=== PATIENT | female | born 1945 | race Caucasian/White ===

== ENCOUNTER 2020-06-12 18:21 | Emergency (ER) | payer MEDICARE ==
[~2020-06-12] VITALS: Ht 154.9 cm; Wt 82.0 kg
[~2020-06-12 18:21] MED LIST: EPINEPHrine SYRINGE 1 MG/10 ML SYRINGE ONE
[2020-06-12] MEDS ORDERED: DEXTROSE 50% 25 GM / 50ML DISP.SYRIN. IV ONE ×4 (18:42→19:30)
[2020-06-12] MEDS ORDERED: GLUCAGON,HUMAN RECOMBINANT 1 MG/ML VIAL. ONE (18:43)
[2020-06-12] MEDS ORDERED: IV NORMAL SALINE 1000ML BAG 1,000 ML IV ONE (19:00)
[2020-06-12] MEDS ORDERED: GLUCAGON,HUMAN RECOMBINANT 1 MG/ML VIAL. IV ONE (19:00)
[2020-06-12] MEDS ORDERED: VANCOMYCIN PER PHARMACY MC ONE (19:00)
--- NOTE | 2020-06-12 19:11 | PHYS DOC ---
Adult General Chief Complaint Chief Complaint: ALTERED MENTAL STATUS HPI HPI Patient is a 75 year old male with complicated past medical history presenting to emergency department from [facility] due to concern for altered mental status. According to EMS; patient was noted to have decreased activity and responsiveness. care home said that this occurred approximately 30 minutes prior to arrival. Per EMS the patient's blood sugar was down to 56 and she was completely unresponsive and hypoxic. No known recent illness or sick contacts. Patient is unable to provide her history because she is unresponsive at the time of arrival Review of Systems Review of Systems Constitutional: Denies fever or chills [] Eyes: Denies change in visual acuity, redness, or eye pain [] HENT: Denies nasal congestion or sore throat [] Respiratory: Denies cough or shortness of breath [] Cardiovascular: No additional information not addressed in HPI [] GI: Denies abdominal pain, nausea, vomiting, bloody stools or diarrhea [] : Denies dysuria or hematuria [] Musculoskeletal: Denies back pain or joint pain [] Integument: Denies rash or skin lesions [] Neurologic: Denies headache, focal weakness or sensory changes [] Endocrine: Denies polyuria or polydipsia [] All other systems were reviewed and found to be within normal limits, except as documented in this note. Current Medications Current Medications Current Medications Medications (Trade) Dose Ordered Sig/Lucie Start Time Stop Time Status Last Admin Dose Admin Dextrose (Dextrose 50%-Water Syringe) 25 gm STK-MED ONCE 06/13/20 05:15 06/13/20 05:16 DC Furosemide (Lasix) 40 mg 1X ONCE 06/13/20 05:15 06/13/20 05:16 DC 06/13/20 05:17 40 MG Glucagon (Glucagen) 1 mg 1X ONCE 06/12/20 19:00 06/12/20 19:01 DC 06/12/20 18:46 1 MG Info (CONTRAST GIVEN -- Rx MONITORING) 1 each PRN DAILY PRN 06/12/20 21:30 06/14/20 21:29 Iohexol (Omnipaque 350 Mg/ml) 100 ml 1X ONCE 06/12/20 21:30 06/12/20 21:31 DC 06/12/20 21:52 100 ML Non-Formulary Medication (Non Formulary Item) 1 ea ONCE ONCE 06/13/20 02:30 06/13/20 02:31 DC Norepinephrine Bitartrate 8 mg/ Dextrose 258 ml @ 0 mls/hr CONT PRN 06/12/20 19:00 06/13/20 01:42 15 MLS/HR Piperacillin Sod/ Tazobactam Sod 4.5 gm/Sodium Chloride 100 ml @ 200 mls/hr 1X ONCE 06/12/20 19:30 06/12/20 19:59 DC 06/13/20 00:00 200 MLS/HR Propofol 100 ml @ As Directed STK-MED ONCE 06/13/20 04:16 06/13/20 04:16 DC Sodium Chloride 1,000 ml @ 1,000 mls/hr 1X ONCE 06/12/20 19:00 06/12/20 19:59 DC 06/12/20 18:40 1,000 MLS/HR Vancomycin HCl (Vanco Per Pharmacy) 1 each 1X ONCE 06/12/20 19:00 06/12/20 19:06 DC Vancomycin HCl 2 gm/Sodium Chloride 500 ml @ 250 mls/hr 1X ONCE 06/12/20 20:00 06/12/20 21:59 DC 06/12/20 20:59 250 MLS/HR Allergies Allergies Allergies Coded Allergies Type Severity Reaction Last Updated Verified Unable to Assess 06/12/20 No Physical Exam Physical Exam Constitutional: Well developed, well nourished, unresponsive, non-toxic appearance. [] HENT: Normocephalic, atraumatic, bilateral external ears normal, oropharynx moist, no oral exudates, nose normal. [] Eyes: PERRLA, EOMI, conjunctiva normal, no discharge. [] Neck: Normal range of motion, no tenderness, supple, no stridor. [] Cardiovascular:Heart rate regular rhythm, no murmur [] Lungs & Thorax: Bilateral breath sounds clear to auscultation [] Abdomen: Bowel sounds normal, soft, no tenderness, no masses, no pulsatile masses. [] Skin: Warm, dry, no erythema, no rash. [] Back: No tenderness, no CVA tenderness. [] Extremities: No tenderness, no cyanosis, no clubbing, ROM intact, no edema. [] Neurologic: Unable to assess Psychologic: Unable to assess [] Current Patient Data Vital Signs Vital Signs Date Time Temp Pulse Resp B/P (MAP) Pulse Ox O2 Delivery O2 Flow Rate FiO2 06/13/20 04:20 Ventilator 06/13/20 03:07 97.3 113 30 110/60 97.3 06/13/20 01:09 94 06/12/20 18:25 15.0 Lab Values Laboratory Tests Test 06/12/20 18:28 06/12/20 18:55 06/12/20 20:11 06/12/20 20:28 Glucose (Fingerstick) 25 mg/dL (70-99) *L 296 mg/dL (70-99) H White Blood Count 18.8 x10^3/uL (4.0-11.0) H Red Blood Count 5.25 x10^6/uL (3.50-5.40) Hemoglobin 14.4 g/dL (12.0-15.5) Hematocrit 45.5 % (36.0-47.0) Mean Corpuscular Volume 87 fL (79-100) Mean Corpuscular Hemoglobin 28 pg (25-35) Mean Corpuscular Hemoglobin Concent 32 g/dL (31-37) Red Cell Distribution Width 17.0 % (11.5-14.5) H Platelet Count 20 x10^3/uL (140-400) *L Neutrophils (%) (Auto) 85 % (31-73) H Lymphocytes (%) (Auto) 8 % (24-48) L Monocytes (%) (Auto) 6 % (0-9) Eosinophils (%) (Auto) 0 % (0-3) Basophils (%) (Auto) 0 % (0-3) Neutrophils # (Auto) 16.1 x10^3/uL (1.8-7.7) H Lymphocytes # (Auto) 1.5 x10^3/uL (1.0-4.8) Monocytes # (Auto) 1.1 x10^3/uL (0.0-1.1) Eosinophils # (Auto) 0.1 x10^3/uL (0.0-0.7) Basophils # (Auto) 0.1 x10^3/uL (0.0-0.2) Segmented Neutrophils % 84 % (35-66) H Band Neutrophils % 2 % (0-9) Lymphocytes % 5 % (24-48) L Monocytes % 7 % (0-10) Metamyelocytes % 1 % (0-0) H Myelocytes % 1 % (0-0) H Toxic Granulation Mod Toxic Vacuolation Mod Platelet Estimate Decreased (ADEQUATE) Polychromasia Slight Poikilocytosis Slight Anisocytosis Slight Spherocytes Occ Target Cells Occ Crenated Cell Present Prothrombin Time 63.1 SEC (11.7-14.0) H Prothrombin Time INR 7.1 (0.8-1.1) *H Activated Partial Thromboplast Time 70 SEC (24-38) H Fibrinogen 266 mg/dL (200-440) D-Dimer (Teresa) 3.47 ug/mlFEU (0.00-0.50) H Sodium Level 136 mmol/L (136-145) Potassium Level 4.9 mmol/L (3.5-5.1) Chloride Level 101 mmol/L (98-107) Carbon Dioxide Level 9 mmol/L (21-32) *L Anion Gap 26 (6-14) H Blood Urea Nitrogen 58 mg/dL (7-20) H Creatinine 2.5 mg/dL (0.6-1.0) H Estimated GFR (Cockcroft-Gault) 18.7 BUN/Creatinine Ratio 23 (6-20) H Glucose Level 176 mg/dL (70-99) H Lactic Acid Level 15.2 mmol/L (0.4-2.0) *H Calcium Level 8.7 mg/dL (8.5-10.1) Total Bilirubin 2.2 mg/dL (0.2-1.0) H Aspartate Amino Transferase (AST) 526 U/L (15-37) H Alanine Aminotransferase (ALT) 158 U/L (14-59) H Alkaline Phosphatase 171 U/L (46-116) H Creatine Kinase 92 U/L (26-192) Troponin I Quantitative 0.036 ng/mL (0.000-0.055) Total Protein 5.1 g/dL (6.4-8.2) L Albumin 1.5 g/dL (3.4-5.0) L Albumin/Globulin Ratio 0.4 (1.0-1.7) L Lipase 144 U/L (73-393) Procalcitonin 0.29 ng/mL (0.00-0.10) H Urine Collection Type U cath Urine Color Randa Urine Clarity Cloudy Urine pH 5.5 (<5.0-8.0) Urine Specific [place] 1.020 (1.000-1.030) Urine Protein >=300 mg/dL (NEG-TRACE) Urine Glucose (UA) 100 mg/dL (NEG) Urine Ketones (Stick) Negative mg/dL (NEG) Urine Blood Large (NEG) Urine Nitrite Negative (NEG) Urine Bilirubin Moderate (NEG) Urine Urobilinogen Dipstick 1.0 mg/dL (0.2 mg/dL) Urine Leukocyte Esterase Small (NEG) Urine RBC 11-20 /HPF (0-2) Urine WBC 5-10 /HPF (0-4) Urine Squamous Epithelial Cells Few /LPF Urine Amorphous Sediment Present /HPF Urine Bacteria Mod /HPF (0-FEW) Urine Hyaline Casts Moderate /HPF Urine Mucus Mod /LPF Test 06/12/20 23:28 06/12/20 23:34 06/13/20 00:39 06/13/20 02:01 Influenza Type A Antigen Negative (NEGATIVE) Influenza Type B Antigen Negative (NEGATIVE) Lactic Acid Level 7.3 mmol/L (0.4-2.0) *H Glucose (Fingerstick) 94 mg/dL (70-99) 77 mg/dL (70-99) Test 06/13/20 03:15 06/13/20 03:33 06/13/20 03:53 Glucose (Fingerstick) 64 mg/dL (70-99) L White Blood Count 23.8 x10^3/uL (4.0-11.0) H Red Blood Count 5.13 x10^6/uL (3.50-5.40) Hemoglobin 14.3 g/dL (12.0-15.5) Hematocrit 45.4 % (36.0-47.0) Mean Corpuscular Volume 89 fL (79-100) Mean Corpuscular Hemoglobin 28 pg (25-35) Mean Corpuscular Hemoglobin Concent 32 g/dL (31-37) Red Cell Distribution Width 17.5 % (11.5-14.5) H Platelet Count 127 x10^3/uL (140-400) #L Neutrophils (%) (Auto) 87 % (31-73) H Lymphocytes (%) (Auto) 8 % (24-48) L Monocytes (%) (Auto) 4 % (0-9) Eosinophils (%) (Auto) 1 % (0-3) Basophils (%) (Auto) 1 % (0-3) Neutrophils # (Auto) 20.7 x10^3/uL (1.8-7.7) H Lymphocytes # (Auto) 2.0 x10^3/uL (1.0-4.8) Monocytes # (Auto) 0.8 x10^3/uL (0.0-1.1) Eosinophils # (Auto) 0.1 x10^3/uL (0.0-0.7) Basophils # (Auto) 0.1 x10^3/uL (0.0-0.2) O2 Saturation 99 % (92-99) Arterial Blood pH 7.20 (7.35-7.45) *L Arterial Blood pCO2 at Patient Temp 14 mmHg (35-46) *L Arterial Blood pO2 at Patient Temp 208 mmHg (65-108) H Arterial Blood HCO3 5 mmol/L (21-28) L Arterial Blood Base Excess -20 mmol/L (-3-3) L FiO2 100 Laboratory Tests 06/12/20 20:11 06/13/20 03:33 Laboratory Tests 06/12/20 20:11 EKG EKG [] Radiology/Procedures Radiology/Procedures [] Course & Med Decision Making Course & Med Decision Making Pertinent Labs and Imaging studies reviewed. (See chart for details) 75F presented emergency department acutely unresponsive, hypotensive and hypoglycemic. Patient was immediately given 2 large-bore IVs that she arrived without any peripheral access. Initial glucose was noted to be 25. Patient was immediately given an amp of D50 and mild improvement of her mental status. Patient was still noted to be mildly hypotensive and IV fluids were started. Full labs obtained and will determine any further underlying evidence of sepsis. Also planning to obtain a CT head to make sure there is no intracranial abnormality. Documentation delayed secondary to patient care. Patient with multiple lab abnormalities. Primarily noted that the patient has blood in her urine which is raise concern for urinary tract infection however given the patient's compilation of symptoms concern for significant urosepsis. Patient did have a lactic of 15, INR of 7.1, platelets of 20. Patient did arouse slightly after she was given glucose and was complaining of pain in her back rating into her foot. This raised concern for acute aortic dissection or active disease. 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 They also state that she has been undergoing and playing on further chemotherapy for this melanoma thought that she was to have a good prognosis. An extensive discussion with them concerning current evidence of liver, cardiac and renal failure and at this time they feel that the patient would want to proceed with aggressive treatment. At this time we are still having significant of difficulty obtaining remarkable peripheral IV access and therefore considering reversal of anticoagulation and central line placement. 0259 -at this time patient remains hemodynamically stable we are able to get a blood pressure of 116/65. Of note because of the patient's tenuous intravascul ar status after discussing with family decision was made to reverse the patient's anticoagulation with Kcentra and transvaginal platelets. Consent was obtained over the phone from family. K centra being given now, will repeat labs and and determine need for central line. 0422 -patient continued to be held in the emergency department due to reported lack of beds in the ICU. While here nurse noted that the patient's breathing became agonal and she became hypoxic. Decision made to intubate the patient which was done successfully. At this time when discussing with nursing staff about able to transfer the patient to ICU. Dragon Disclaimer Dragon Disclaimer This electronic medical record was generated, in whole or in part, using a voice recognition dictation system. Intubation Procedure Intubation Procedure Intub Indication: Respiratory failure Consent: Unable to give consent due to emergent nature. Medications Used: see nursing note Procedure: The patient was placed in the appropriate position. Intubation was performed using 3 mac glidescope 7.5 endotracheal tube. ETT secured at 22cm at the teeth. Initial confirmation of placement included bilateral breath sounds, tube fogging, adequate chest rise, adequate pulse oximetry reading. A chest x- ray to verify correct placement of the tube showed appropriate tube position. The patient tolerated the procedure well. Complications: none. 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
[2020-06-12] MEDS ORDERED: PIPERACILLIN/TAZOBACTAM 4.5 GM in IV NORMAL SALINE 100ML 100 ML IV ONE (19:30)
[2020-06-12] MEDS ORDERED: VANCOMYCIN 2 GM in IV NORMAL SALINE 500ML BAG 500 ML IV ONE (20:00)
--- NOTE | 2020-06-12 20:03 | RAD ---
Exam performed: One view chest. Indication: Reason: syncope / Spl. Instructions: / History: Date of Service: 06/12/2020 7:14 PM Comparison: None available. Single AP upright portable view chest findings: Poor inspiratory effort Cardiomediastinal silhouette is within limits of normal for degree of inspiration. Linear left basila r opacity may be related to a combination of infiltrate/atelectasis with small effusion. The right felice ng is clear. Right hilar prominence noted. The bony structures are normal. Impression: Right hilar prominence perhaps related to rotation, however right hilar mass is not excluded. Compari son with any previous chest x-rays available may be obtained, however if not evaluation with CT chest with contrast may be obtained on a nonemergent basis. Left basilar infiltrate or atelectasis with pleural effusion. Electronically signed by: Marjorie Tate MD (06/12/2020 8:00 PM) [facility]
[2020-06-12 20:32] LABS: BASO # 0.1 x10^3/uL (0.0-0.2); BASO % 0 % (0-3); EOS # 0.1 x10^3/uL (0.0-0.7); EOS % 0 % (0-3); HEMATOCRIT 45.5 % (36.0-47.0); HEMOGLOBIN 14.4 g/dL (12.0-15.5); LYMPH # 1.5 x10^3/uL (1.0-4.8); LYMPH % 8 % (24-48); MEAN CORPUSCULAR HEMOGLOBIN 28 pg (25-35); MEAN CORPUSCULAR HGB CONC 32 g/dL (31-37); MEAN CORPUSCULAR VOLUME 87 fL (79-100); MONO # 1.1 x10^3/uL (0.0-1.1); MONO % 6 % (0-9); NEUT # 16.1 x10^3/uL (1.8-7.7); NEUT % 85 % (31-73); RED BLOOD COUNT 5.25 x10^6/uL (3.50-5.40); WHITE BLOOD COUNT 18.8 x10^3/uL (4.0-11.0)
[2020-06-12 20:37] LABS: PLATELET COUNT 20 x10^3/uL (140-400)
[2020-06-12 20:43] LABS: PROTHROMBIN TIME PATIENT 63.1 SEC (11.7-14.0)
[2020-06-12 20:45] LABS: BILIRUBIN,URINE MODERATE (NEG); CLARITY,URINE CLOUDY; COLOR,URINE AMBER; NITRITE,URINE NEGATIVE (NEG); PH,URINE 5.5 (<5.0-8.0); PROTEIN,URINE >=300 mg/dL (NEG-TRACE)
[2020-06-12 20:51] LABS: AMORPHOUS SEDIMENT,UR PRESENT /HPF; HYALINE CASTS, URINE MODERATE /HPF
[2020-06-12 20:52] LABS: BACTERIA,URINE MOD /HPF (0-FEW)
[2020-06-12 20:53] LABS: D-DIMER 3.47 ug/mlFEU (0.00-0.50)
[2020-06-12 20:54] LABS: ALBUMIN 1.5 g/dL (3.4-5.0); ALBUMIN/GLOBULIN RATIO 0.4 (1.0-1.7); CALCIUM 8.7 mg/dL (8.5-10.1); CREATININE 2.5 mg/dL (0.6-1.0); GFR 18.7; POTASSIUM 4.9 mmol/L (3.5-5.1); TOTAL BILIRUBIN 2.2 mg/dL (0.2-1.0); TOTAL PROTEIN 5.1 g/dL (6.4-8.2)
[2020-06-12 21:23] LABS: % BANDS 2 % (0-9); % LYMPHS 5 % (24-48); % METAS 1 % (0-0); % MONOS 7 % (0-10); % MYELOS 1 % (0-0); % SEGS 84 % (35-66); PLT ESTIMATE DECREASED (ADEQUATE)
[2020-06-12 21:24] LABS: ANISOCYTOSIS SLIGHT; POIKILOCYTOSIS SLIGHT; POLYCHROMASIA SLIGHT; SPHEROCYTES OCC; TARGET CELLS OCC; TOXIC GRANULATION MOD; TOXIC VACUOLATION MOD
[2020-06-12] MEDS ORDERED: IOHEXOL 350 MG/ML 100 ML VIAL. IV ONE (21:30)
[2020-06-12] MEDS ORDERED: CONTRAST GIVEN. MC PRN (21:30)
--- NOTE | 2020-06-12 22:20 | RAD ---
Exam: CT head INDICATION: Altered mental status TECHNIQUE: Sequential axial images through the head were obtained without the administration of IV co ntrast. Comparisons: None FINDINGS: No focal parenchymal lesion or hemorrhage is identified. There is no midline shift or sulcal effaceme nt. Mild patchy hypodensity in the periventricular white matter. No acute vascular territory infarction i s identified. Crespo-white distinction is preserved. The ventricular system is within normal limits without compression hydrocephalus. The basal cisterns are well maintained. The visualized portions of the paranasal sinuses and mastoid air cells are well-pneumatized. No acute fractures. IMPRESSION: Mild small vessel schema change, technically age indeterminate without recent prior imaging. Exposure: One or more of the following in the visualized dose reduction techniques were utilized for this examination: 1. Automated exposure control 2. Adjustment of the MA and/or KV according to patient size Use of iterative of reconstructive technique Electronically signed by: Josefina Hyatt MD (06/12/2020 10:18 PM) [facility]
--- NOTE | 2020-06-12 22:36 | RAD ---
Exam: CT of chest, abdomen and pelvis with contrast INDICATION: Back pain, unresponsive TECHNIQUE: Sequential axial images through the chest, abdomen and pelvis obtained following the admin istration of 75 mL of Isovue-370 IV contrast. Sagittal and coronal reformatted images were reconstruc joe from the axial data and reviewed. 3-D reformatted images were reconstructed from the axial data a nd reviewed. Comparisons: None FINDINGS: Visualized portions of the thyroid are unremarkable. No enlarged mediastinal lymph nodes. Heart size is normal. There is a large filling defect occupying the entire right atrium which appears to be extending from the IVC. Pulmonary artery is not enlarged. Thoracic aorta has a normal course a nd caliber. High density contrast is seen in the left subclavian artery extending to the descending t horacic aorta. Airways are patent. No consolidation or pneumothorax. No suspicious lung nodules. Moderate-sized bilateral pleural effusions. There is a partially calcified multilobulated large mass within the left hepatic lobe measuring appro ximately 7.7 x 6.8 cm. Diffuse hepatic steatosis. Spleen, pancreas, gallbladder and adrenals are unre markable. No perinephric inflammation or hydronephrosis. No renal or ureteral calculi. Bladder is decompressed not well evaluated. Uterus is not enlarged. No abnormal adnexal mass. Large and small bowel are unremarkable. Appendix is not identified. No free intra-abdominal air or fl uid. No obstruction. Abdominal aorta has a normal course and caliber. No enlarged intra-abdominal lymph nodes. No suspicious osseous lesions or acute fractures. IMPRESSION: 1. Large multiloculated partially calcified mass within the left hepatic lobe measuring approximatel y 7.8 x 6.8 cm. This is incompletely characterized on this exam. 2. 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 3. Given pattern of contrast evolution in the vasculature on two phase study, there are findings of catheterization of a left upper extremity arterial vessel. Recommend discontinued use of injected dmitry e. 4. Diffuse soft tissue anasarca and moderate bilateral pleural effusions. Exposure: One or more of the following in the visualized dose reduction techniques were utilized for this examination: 1. Automated exposure control 2. Adjustment of the MA and/or KV according to patient size 3. Use of iterative of reconstructive technique FOR INTERNAL CODING PURPOSES Critical result: Findings discussed with Tierney at 06/12/2020 10:07 PM. RESULT CODE: (C) Electronically signed by: Josefina Hyatt MD (06/12/2020 10:34 PM) [facility]
[2020-06-12 23:52] LABS: INFLUENZA A PATIENT NEGATIVE (NEGATIVE); INFLUENZA B PATIENT NEGATIVE (NEGATIVE)
[2020-06-13] MEDS: NOREPINEPHRINE VIAL 8 MG in IV DEXTROSE 5% 250 ML IV PRN ×2 (01:42→06:40)
[2020-06-13] MEDS ORDERED: HUM PROTHROMBIN CPLX IV ONE (02:30)
[2020-06-13] MEDS ORDERED: [UNRECOGNIZED DRUG - OTHER] IV ONE (02:30)
[2020-06-13] MEDS ORDERED: NON FORMULARY ITEM IV ONE (02:30)
[2020-06-13 02:40] VITALS: BP 90/51
[2020-06-13 02:47] VITALS: BP 90/51
[2020-06-13 03:02] VITALS: BP 116/65
[2020-06-13 03:07] VITALS: BP 110/60
[2020-06-13] MEDS ORDERED: DEXTROSE 50% 25 GM / 50ML DISP.SYRIN. IV ONE ×2 (03:17→05:15)
[2020-06-13 03:45] LABS: BASO # 0.1 x10^3/uL (0.0-0.2); BASO % 1 % (0-3); EOS # 0.1 x10^3/uL (0.0-0.7); EOS % 1 % (0-3); HEMATOCRIT 45.4 % (36.0-47.0); HEMOGLOBIN 14.3 g/dL (12.0-15.5); LYMPH % 8 % (24-48); MEAN CORPUSCULAR HEMOGLOBIN 28 pg (25-35); MEAN CORPUSCULAR HGB CONC 32 g/dL (31-37); MEAN CORPUSCULAR VOLUME 89 fL (79-100); MONO # 0.8 x10^3/uL (0.0-1.1); MONO % 4 % (0-9); NEUT # 20.7 x10^3/uL (1.8-7.7); NEUT % 87 % (31-73); PLATELET COUNT 127 x10^3/uL (140-400); RED BLOOD COUNT 5.13 x10^6/uL (3.50-5.40); RED CELL DISTRIBUTION WIDTH 17.5 % (11.5-14.5); WHITE BLOOD COUNT 23.8 x10^3/uL (4.0-11.0)
[2020-06-13 03:52] LABS: BASE EXCESS ABG -20 mmol/L (-3-3); HCO3 ABG 5 mmol/L (21-28); PO2 ABG 208 mmHg (65-108); SAT O2 ABG 99 % (92-99)
[2020-06-13] MEDS ORDERED: FUROSEMIDE 40 MG/4 ML VIAL. ONE (03:52)
[2020-06-13] MEDS ORDERED: FUROSEMIDE 40 MG TABLET. PO ONE (04:00)
[2020-06-13] MEDS ORDERED: PROPOFOL 0 ML IV ONE (04:16)
[2020-06-13 04:43] LABS: FIO2 ABG 100; PCO2 ABG 14 mmHg (35-46)
[2020-06-13] MEDS ORDERED: FUROSEMIDE 40 MG/4 ML VIAL. IVP ONE (05:15)
[2020-06-13 05:38] VITALS: BP 92/51
[2020-06-13 05:39] LABS: BASE EXCESS ABG -25 mmol/L (-3-3); HCO3 ABG 5 mmol/L (21-28); PO2 ABG 102 mmHg (65-108); SAT O2 ABG 94 % (92-99)
[2020-06-13 05:47] LABS: FIO2 ABG 100; PCO2 ABG 20 mmHg (35-46)
--- NOTE | 2020-06-13 05:47 | RAD ---
XR CHEST 1V supine Clinical Indication: Reason: s/p tlc, ett / Comparison: AP chest, prior day. Findings: Endotracheal tube tip is 3.5 cm superior to the eduardo. Enteric tube tip is in the stomach, tip outsi de of [id number]. There is right IJ central line, tip near superior atriocaval junction. The cardi omediastinal silhouette is probably stable. Mild right basilar atelectasis. There is new hazy opacity in the left midlung. Alternatively this opacity could be due to layering pleural effusion. Left basi lar airspace disease is unchanged. There is no obvious pneumothorax. IMPRESSION: 1. Appropriate position of life support devices. 2. New left midlung airspace disease. 3. Bibasilar atelectasis. Electronically signed by: Morgan Turner MD (06/13/2020 5:44 AM) [facility]
[2020-06-13] MEDS ORDERED: SODIUM BICARBONATE VIAL 150 MEQ in IV STERILE WATER 1,000 ML IV SCH (06:00)
[2020-06-13 06:03] LABS: ALBUMIN/GLOBULIN RATIO 0.4 (1.0-1.7); CALCIUM 7.8 mg/dL (8.5-10.1); CREATININE 2.7 mg/dL (0.6-1.0); GFR 17.1; TOTAL BILIRUBIN 2.1 mg/dL (0.2-1.0); TOTAL PROTEIN 3.6 g/dL (6.4-8.2)
[2020-06-13 06:10] LABS: POTASSIUM 6.2 mmol/L (3.5-5.1)
[2020-06-13] MEDS ORDERED: PROPOFOL 10 MG/ML (20ML) VIAL. IV ONE ×2 (06:15→06:45)
[2020-06-13] MEDS ORDERED: CALCIUM GLUCONATE 1,000 MG/10 ML VIAL. IVP ONE (06:30)
[2020-06-13] MEDS ORDERED: ETOMIDATE 20 MG/10 ML VIAL. IV ONE (07:06)
[2020-06-13] MEDS ORDERED: SUCCINYLCHOLINE 200 MG/10 ML VIAL. ONE (07:06)
[2020-06-13] MEDS ORDERED: EPINEPHrine SYRINGE 1 MG/10 ML SYRINGE IV ONE (07:24)
--- NOTE | 2020-06-13 07:35 | PDOC5 ---
CODE REPORT CODE REPORT Patient is a 75-year-old female who was admitted to the ICU, boarding in the ER waiting for bed availability, was CODED, in asystole. After several rounds of resuscitation, NO ROSC. Patient was pronounced by just physician at 7:[address] River Finnegan, the attending physician was notified of patient passing. DANIELLE DUNCAN DO Jun 13, 2020 07:35
--- NOTE | 2020-06-13 07:47 | PDOC1 ---
History and Physical Date of Admission Date of Admission DATE: 06/13/20 TIME: 06:22 Identification/Chief Complaint Chief Complaint Altered mental status Source Source: Chart review History of Present Illness History of Present Illness Patient is 75-year-old female with past medical history melanoma on chemotherapy, who [facility] for evaluation of altered mental status. Per EMS, patient was noted to be unresponsive and hypoxic with a blood glucose of 58. Upon arrival in the ED she was hypotensive with blood glucose was 25 and she was treated with IV fluids and D50 with mild improvement in mental status. 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 Initial labs and vitals concerning for urosepsis, acute renal failure, liver failure, and heart failure. Given significantly elevated INR at 7.1 and platelets at 20, she was given Kcentra and platelet transfusion. Patient continued to deteriorate and was eventually intubated in the ED. Family reportedly wanted to proceed with aggressive treatment. Will admit patient to the ICU for further medical management. Past Medical History Past Medical History Unable to be obtained due to clinical condition Past Surgical History Past Surgical History Unable to be obtained due to clinical condition Family History Family History Unable to be obtained due to clinical condition SOCIAL HISTORY: Unable to be obtained due to clinical condition Family History: Other Current Medications Current Medications Current Medications Dextrose (Dextrose 50%-Water Syringe) 25 gm STK-MED ONCE IV ; Start 06/12/20 at 18:42; Stop 06/12/20 at 18:43; Status DC Glucagon (Glucagen) 1 mg STK-MED ONCE .ROUTE ; Start 06/12/20 at 18:43; Stop 06/12/20 at 18:44; Status DC Dextrose (Dextrose 50%-Water Syringe) 25 gm 1X ONCE IV Last administered on 06/12/20at 18:35; Start 06/12/20 at 19:00; Stop 06/12/20 at 19:01; Status DC Dextrose (Dextrose 50%-Water Syringe) 25 gm 1X ONCE IV Last administered on 06/12/20at 18:44; Start 06/12/20 at 19:00; Stop 06/12/20 at 19:01; Status DC Glucagon (Glucagen) 1 mg 1X ONCE IV Last administered on 06/12/20at 18:46; Start 06/12/20 at 19:00; Stop 06/12/20 at 19:01; Status DC Sodium Chloride 1,000 ml @ 1,000 mls/hr 1X ONCE IV Last administered on 06/12/20at 18:40; Start 06/12/20 at 19:00; Stop 06/12/20 at 19:59; Status DC Piperacillin Sod/ Tazobactam Sod 4.5 gm/Sodium Chloride 100 ml @ 200 mls/hr 1X ONCE IV Last administered on 06/13/20at 00:00; Start 06/12/20 at 19:30; Stop 06/12/20 at 19:59; Status DC Vancomycin HCl (Vanco Per Pharmacy) 1 each 1X ONCE MC ; Start 06/12/20 at 19:0 0; Stop 06/12/20 at 19:06; Status DC Norepinephrine Bitartrate 8 mg/ Dextrose 258 ml @ 0 mls/hr CONT PRN IV PER PROTOCOL Last administered on 06/13/20at 01:42; Start 06/12/20 at 19:00 Dextrose (Dextrose 50%-Water Syringe) 50 gm 1X ONCE IV Last administered on 06/13/20at 03:18; Start 06/12/20 at 19:30; Stop 06/12/20 at 19:31; Status DC Vancomycin HCl 2 gm/Sodium Chloride 500 ml @ 250 mls/hr 1X ONCE IV Last administered on 06/12/20at 20:59; Start 06/12/20 at 20:00; Stop 06/12/20 at 21:59; Status DC Iohexol (Omnipaque 350 Mg/ml) 100 ml 1X ONCE IV Last administered on 06/12/20at 21:52; Start 06/12/20 at 21:30; Stop 06/12/20 at 21:31; Status DC Info (CONTRAST GIVEN -- Rx MONITORING) 1 each PRN DAILY PRN MC SEE COMMENTS; Start 06/12/20 at 21:30; Stop 06/14/20 at 21:29 Non-Formulary Medication (Non Formulary Item) 1 ea ONCE ONCE IV Last administered on 06/13/20at 02:30; Start 06/13/20 at 02:30; Stop 06/13/20 at 02:31; Status DC Dextrose (Dextrose 50%-Water Syringe) 25 gm STK-MED ONCE IV ; Start 06/13/20 at 03:17; Stop 06/13/20 at 03:17; Status DC Furosemide (Lasix) 40 mg 1X ONCE PO ; Start 06/13/20 at 04:00; Stop 06/13/20 at 04:01; Status Cancel Furosemide (Lasix) 40 mg STK-MED ONCE .ROUTE ; Start 06/13/20 at 03:52; Stop 06/13/20 at 03:52; Status DC Propofol 100 ml @ As Directed STK-MED ONCE IV ; Start 06/13/20 at 04:16; Stop 06/13/20 at 04:16; Status DC Furosemide (Lasix) 40 mg 1X ONCE IVP Last administered on 06/13/20at 05:17; Start 06/13/20 at 05:15; Stop 06/13/20 at 05:16; Status DC Dextrose (Dextrose 50%-Water Syringe) 25 gm STK-MED ONCE IV ; Start 06/13/20 at 05:15; Stop 06/13/20 at 05:16; Status DC Sodium Bicarbonate 150 meq/Sterile Water 1,150 ml @ 125 mls/hr Q9H12M IV Last administered on 06/13/20at 06:01; Start 06/13/20 at 06:00 Propofol (Diprivan) 200 mg 1X ONCE IV ; Start 06/13/20 at 06:15; Stop 06/13/20 at 06:16; Status DC Allergies Allergies: Coded Allergies: Unable to Assess (Unverified , 06/12/20) UNRESPONSIVE IN ED ROS Review of System Unable to be obtained due to clinical condition Physical Exam Physical Exam General: Obtunded HEENT: PERRLA, spontaneous eye movement Lungs: Decreased breath sounds Heart: RRR, no murmurs Cardiovascular: S1, S2 Abdomen: Obese abdomen, soft Extremities: Generalized edema no clubbing, No cyanosis Skin: Multiple abrasions, no rashes, No significant lesion Neuro: Obtunded Psych/Mental Status: Obtunded Vitals Vitals Vital Signs Date Time Temp Pulse Resp B/P (MAP) Pulse Ox O2 Delivery O2 Flow Rate FiO2 06/13/20 06:05 Ventilator 06/13/20 03:07 97.3 113 30 110/60 97.3 06/13/20 01:09 94 06/12/20 18:25 15.0 Labs Labs Laboratory Tests Test 06/12/20 18:28 06/12/20 18:55 06/12/20 20:11 06/12/20 20:28 Glucose (Fingerstick) 25 mg/dL (70-99) 296 mg/dL (70-99) White Blood Count 18.8 x10^3/uL (4.0-11.0) Red Blood Count 5.25 x10^6/uL (3.50-5.40) Hemoglobin 14.4 g/dL (12.0-15.5) Hematocrit 45.5 % (36.0-47.0) Mean Corpuscular Volume 87 fL (79-100) Mean Corpuscular Hemoglobin 28 pg (25-35) Mean Corpuscular Hemoglobin Concent 32 g/dL (31-37) Red Cell Distribution Width 17.0 % (11.5-14.5) Platelet Count 20 x10^3/uL (140-400) Neutrophils (%) (Auto) 85 % (31-73) Lymphocytes (%) (Auto) 8 % (24-48) Monocytes (%) (Auto) 6 % (0-9) Eosinophils (%) (Auto) 0 % (0-3) Basophils (%) (Auto) 0 % (0-3) Neutrophils # (Auto) 16.1 x10^3/uL (1.8-7.7) Lymphocytes # (Auto) 1.5 x10^3/uL (1.0-4.8) Monocytes # (Auto) 1.1 x10^3/uL (0.0-1.1) Eosinophils # (Auto) 0.1 x10^3/uL (0.0-0.7) Basophils # (Auto) 0.1 x10^3/uL (0.0-0.2) Segmented Neutrophils % 84 % (35-66) Band Neutrophils % 2 % (0-9) Lymphocytes % 5 % (24-48) Monocytes % 7 % (0-10) Metamyelocytes % 1 % (0-0) Myelocytes % 1 % (0-0) Toxic Granulation Mod Toxic Vacuolation Mod Platelet Estimate Decreased (ADEQUATE) Polychromasia Slight Poikilocytosis Slight Anisocytosis Slight Spherocytes Occ Target Cells Occ Crenated Cell Present Prothrombin Time 63.1 SEC (11.7-14.0) Prothromb Time International Ratio 7.1 (0.8-1.1) Activated Partial Thromboplast Time 70 SEC (24-38) Fibrinogen 266 mg/dL (200-440) D-Dimer (Teresa) 3.47 ug/mlFEU (0.00-0.50) Sodium Level 136 mmol/L (136-145) Potassium Level 4.9 mmol/L (3.5-5.1) Chloride Level 101 mmol/L (98-107) Carbon Dioxide Level 9 mmol/L (21-32) Anion Gap 26 (6-14) Blood Urea Nitrogen 58 mg/dL (7-20) Creatinine 2.5 mg/dL (0.6-1.0) Estimated GFR (Cockcroft-Gault) 18.7 BUN/Creatinine Ratio 23 (6-20) Glucose Level 176 mg/dL (70-99) Lactic Acid Level 15.2 mmol/L (0.4-2.0) Calcium Level 8.7 mg/dL (8.5-10.1) Total Bilirubin 2.2 mg/dL (0.2-1.0) Aspartate Amino Transf (AST/SGOT) 526 U/L (15-37) Alanine Aminotransferase (ALT/SGPT) 158 U/L (14-59) Alkaline Phosphatase 171 U/L (46-116) Creatine Kinase 92 U/L (26-192) Troponin I Quantitative 0.036 ng/mL (0.000-0.055) Total Protein 5.1 g/dL (6.4-8.2) Albumin 1.5 g/dL (3.4-5.0) Albumin/Globulin Ratio 0.4 (1.0-1.7) Lipase 144 U/L (73-393) Procalcitonin 0.29 ng/mL (0.00-0.10) Urine Collection Type U cath Urine Color Randa Urine Clarity Cloudy Urine pH 5.5 (<5.0-8.0) Urine Specific Waller 1.020 (1.000-1.030) Urine Protein >=300 mg/dL (NEG-TRACE) Urine Glucose (UA) 100 mg/dL (NEG) Urine Ketones (Stick) Negative mg/dL (NEG) Urine Blood Large (NEG) Urine Nitrite Negative (NEG) Urine Bilirubin Moderate (NEG) Urine Urobilinogen Dipstick 1.0 mg/dL (0.2 mg/dL) Urine Leukocyte Esterase Small (NEG) Urine RBC 11-20 /HPF (0-2) Urine WBC 5-10 /HPF (0-4) Urine Squamous Epithelial Cells Few /LPF Urine Amorphous Sediment Present /HPF Urine Bacteria Mod /HPF (0-FEW) Urine Hyaline Casts Moderate /HPF Urine Mucus Mod /LPF Test 06/12/20 23:28 06/12/20 23:34 06/13/20 00:39 06/13/20 02:01 Influenza Type A Antigen Negative (NEGATIVE) Influenza Type B Antigen Negative (NEGATIVE) Lactic Acid Level 7.3 mmol/L (0.4-2.0) Glucose (Fingerstick) 94 mg/dL (70-99) 77 mg/dL (70-99) Test 06/13/20 03:15 06/13/20 03:33 06/13/20 03:53 06/13/20 05:07 Glucose (Fingerstick) 64 mg/dL (70-99) 59 mg/dL (70-99) White Blood Count 23.8 x10^3/uL (4.0-11.0) Red Blood Count 5.13 x10^6/uL (3.50-5.40) Hemoglobin 14.3 g/dL (12.0-15.5) Hematocrit 45.4 % (36.0-47.0) Mean Corpuscular Volume 89 fL (79-100) Mean Corpuscular Hemoglobin 28 pg (25-35) Mean Corpuscular Hemoglobin Concent 32 g/dL (31-37) Red Cell Distribution Width 17.5 % (11.5-14.5) Platelet Count 127 x10^3/uL (140-400) Neutrophils (%) (Auto) 87 % (31-73) Lymphocytes (%) (Auto) 8 % (24-48) Monocytes (%) (Auto) 4 % (0-9) Eosinophils (%) (Auto) 1 % (0-3) Basophils (%) (Auto) 1 % (0-3) Neutrophils # (Auto) 20.7 x10^3/uL (1.8-7.7) Lymphocytes # (Auto) 2.0 x10^3/uL (1.0-4.8) Monocytes # (Auto) 0.8 x10^3/uL (0.0-1.1) Eosinophils # (Auto) 0.1 x10^3/uL (0.0-0.7) Basophils # (Auto) 0.1 x10^3/uL (0.0-0.2) O2 Saturation 99 % (92-99) Arterial Blood pH 7.20 (7.35-7.45) Arterial Blood pCO2 at Patient Temp 14 mmHg (35-46) Arterial Blood pO2 at Patient Temp 208 mmHg (65-108) Arterial Blood HCO3 5 mmol/L (21-28) Arterial Blood Base Excess -20 mmol/L (-3-3) FiO2 100 Test 06/13/20 05:28 06/13/20 05:40 Sodium Level 134 mmol/L (136-145) Potassium Level 6.2 mmol/L (3.5-5.1) Chloride Level 100 mmol/L (98-107) Carbon Dioxide Level 8 mmol/L (21-32) Anion Gap 26 (6-14) Blood Urea Nitrogen 59 mg/dL (7-20) Creatinine 2.7 mg/dL (0.6-1.0) Estimated GFR (Cockcroft-Gault) 17.1 BUN/Creatinine Ratio 22 (6-20) Glucose Level 377 mg/dL (70-99) Calcium Level 7.8 mg/dL (8.5-10.1) Total Bilirubin 2.1 mg/dL (0.2-1.0) Aspartate Amino Transf (AST/SGOT) 1231 U/L (15-37) Alanine Aminotransferase (ALT/SGPT) 252 U/L (14-59) Alkaline Phosphatase 126 U/L (46-116) Total Protein 3.6 g/dL (6.4-8.2) Albumin 1.0 g/dL (3.4-5.0) Albumin/Globulin Ratio 0.4 (1.0-1.7) O2 Saturation 94 % (92-99) Arterial Blood pH 7.01 (7.35-7.45) Arterial Blood pCO2 at Patient Temp 20 mmHg (35-46) Arterial Blood pO2 at Patient Temp 102 mmHg (65-108) Arterial Blood HCO3 5 mmol/L (21-28) Arterial Blood Base Excess -25 mmol/L (-3-3) FiO2 100 Laboratory Tests Test 06/12/20 18:28 06/12/20 18:55 06/12/20 20:11 06/12/20 20:28 Glucose (Fingerstick) 25 mg/dL (70-99) 296 mg/dL (70-99) White Blood Count 18.8 x10^3/uL (4.0-11.0) Red Blood Count 5.25 x10^6/uL (3.50-5.40) Hemoglobin 14.4 g/dL (12.0-15.5) Hematocrit 45.5 % (36.0-47.0) Mean Corpuscular Volume 87 fL (79-100) Mean Corpuscular Hemoglobin 28 pg (25-35) Mean Corpuscular Hemoglobin Concent 32 g/dL (31-37) Red Cell Distribution Width 17.0 % (11.5-14.5) Platelet Count 20 x10^3/uL (140-400) Neutrophils (%) (Auto) 85 % (31-73) Lymphocytes (%) (Auto) 8 % (24-48) Monocytes (%) (Auto) 6 % (0-9) Eosinophils (%) (Auto) 0 % (0-3) Basophils (%) (Auto) 0 % (0-3) Neutrophils # (Auto) 16.1 x10^3/uL (1.8-7.7) Lymphocytes # (Auto) 1.5 x10^3/uL (1.0-4.8) Monocytes # (Auto) 1.1 x10^3/uL (0.0-1.1) Eosinophils # (Auto) 0.1 x10^3/uL (0.0-0.7) Basophils # (Auto) 0.1 x10^3/uL (0.0-0.2) Segmented Neutrophils % 84 % (35-66) Band Neutrophils % 2 % (0-9) Lymphocytes % 5 % (24-48) Monocytes % 7 % (0-10) Metamyelocytes % 1 % (0-0) Myelocytes % 1 % (0-0) Toxic Granulation Mod Toxic Vacuolation Mod Platelet Estimate Decreased (ADEQUATE) Polychromasia Slight Poikilocytosis Slight Anisocytosis Slight Spherocytes Occ Target Cells Occ Crenated Cell Present Prothrombin Time 63.1 SEC (11.7-14.0) Prothromb Time International Ratio 7.1 (0.8-1.1) Activated Partial Thromboplast Time 70 SEC (24-38) Fibrinogen 266 mg/dL (200-440) D-Dimer (Teresa) 3.47 ug/mlFEU (0.00-0.50) Sodium Level 136 mmol/L (136-145) Potassium Level 4.9 mmol/L (3.5-5.1) Chloride Level 101 mmol/L (98-107) Carbon Dioxide Level 9 mmol/L (21-32) Anion Gap 26 (6-14) Blood Urea Nitrogen 58 mg/dL (7-20) Creatinine 2.5 mg/dL (0.6-1.0) Estimated GFR (Cockcroft-Gault) 18.7 BUN/Creatinine Ratio 23 (6-20) Glucose Level 176 mg/dL (70-99) Lactic Acid Level 15.2 mmol/L (0.4-2.0) Calcium Level 8.7 mg/dL (8.5-10.1) Total Bilirubin 2.2 mg/dL (0.2-1.0) Aspartate Amino Transf (AST/SGOT) 526 U/L (15-37) Alanine Aminotransferase (ALT/SGPT) 158 U/L (14-59) Alkaline Phosphatase 171 U/L (46-116) Creatine Kinase 92 U/L (26-192) Troponin I Quantitative 0.036 ng/mL (0.000-0.055) Total Protein 5.1 g/dL (6.4-8.2) Albumin 1.5 g/dL (3.4-5.0) Albumin/Globulin Ratio 0.4 (1.0-1.7) Lipase 144 U/L (73-393) Procalcitonin 0.29 ng/mL (0.00-0.10) Urine Collection Type U cath Urine Color Randa Urine Clarity Cloudy Urine pH 5.5 (<5.0-8.0) Urine Specific Waller 1.020 (1.000-1.030) Urine Protein >=300 mg/dL (NEG-TRACE) Urine Glucose (UA) 100 mg/dL (NEG) Urine Ketones (Stick) Negative mg/dL (NEG) Urine Blood Large (NEG) Urine Nitrite Negative (NEG) Urine Bilirubin Moderate (NEG) Urine Urobilinogen Dipstick 1.0 mg/dL (0.2 mg/dL) Urine Leukocyte Esterase Small (NEG) Urine RBC 11-20 /HPF (0-2) Urine WBC 5-10 /HPF (0-4) Urine Squamous Epithelial Cells Few /LPF Urine Amorphous Sediment Present /HPF Urine Bacteria Mod /HPF (0-FEW) Urine Hyaline Casts Moderate /HPF Urine Mucus Mod /LPF Test 06/12/20 23:28 06/12/20 23:34 06/13/20 00:39 06/13/20 02:01 Influenza Type A Antigen Negative (NEGATIVE) Influenza Type B Antigen Negative (NEGATIVE) Lactic Acid Level 7.3 mmol/L (0.4-2.0) Glucose (Fingerstick) 94 mg/dL (70-99) 77 mg/dL (70-99) Test 06/13/20 03:15 06/13/20 03:33 06/13/20 03:53 06/13/20 05:07 Glucose (Fingerstick) 64 mg/dL (70-99) 59 mg/dL (70-99) White Blood Count 23.8 x10^3/uL (4.0-11.0) Red Blood Count 5.13 x10^6/uL (3.50-5.40) Hemoglobin 14.3 g/dL (12.0-15.5) Hematocrit 45.4 % (36.0-47.0) Mean Corpuscular Volume 89 fL (79-100) Mean Corpuscular Hemoglobin 28 pg (25-35) Mean Corpuscular Hemoglobin Concent 32 g/dL (31-37) Red Cell Distribution Width 17.5 % (11.5-14.5) Platelet Count 127 x10^3/uL (140-400) Neutrophils (%) (Auto) 87 % (31-73) Lymphocytes (%) (Auto) 8 % (24-48) Monocytes (%) (Auto) 4 % (0-9) Eosinophils (%) (Auto) 1 % (0-3) Basophils (%) (Auto) 1 % (0-3) Neutrophils # (Auto) 20.7 x10^3/uL (1.8-7.7) Lymphocytes # (Auto) 2.0 x10^3/uL (1.0-4.8) Monocytes # (Auto) 0.8 x10^3/uL (0.0-1.1) Eosinophils # (Auto) 0.1 x10^3/uL (0.0-0.7) Basophils # (Auto) 0.1 x10^3/uL (0.0-0.2) O2 Saturation 99 % (92-99) Arterial Blood pH 7.20 (7.35-7.45) Arterial Blood pCO2 at Patient Temp 14 mmHg (35-46) Arterial Blood pO2 at Patient Temp 208 mmHg (65-108) Arterial Blood HCO3 5 mmol/L (21-28) Arterial Blood Base Excess -20 mmol/L (-3-3) FiO2 100 Test 06/13/20 05:28 06/13/20 05:40 Sodium Level 134 mmol/L (136-145) Potassium Level 6.2 mmol/L (3.5-5.1) Chloride Level 100 mmol/L (98-107) Carbon Dioxide Level 8 mmol/L (21-32) Anion Gap 26 (6-14) Blood Urea Nitrogen 59 mg/dL (7-20) Creatinine 2.7 mg/dL (0.6-1.0) Estimated GFR (Cockcroft-Gault) 17.1 BUN/Creatinine Ratio 22 (6-20) Glucose Level 377 mg/dL (70-99) Calcium Level 7.8 mg/dL (8.5-10.1) Total Bilirubin 2.1 mg/dL (0.2-1.0) Aspartate Amino Transf (AST/SGOT) 1231 U/L (15-37) Alanine Aminotransferase (ALT/SGPT) 252 U/L (14-59) Alkaline Phosphatase 126 U/L (46-116) Total Protein 3.6 g/dL (6.4-8.2) Albumin 1.0 g/dL (3.4-5.0) Albumin/Globulin Ratio 0.4 (1.0-1.7) O2 Saturation 94 % (92-99) Arterial Blood pH 7.01 (7.35-7.45) Arterial Blood pCO2 at Patient Temp 20 mmHg (35-46) Arterial Blood pO2 at Patient Temp 102 mmHg (65-108) Arterial Blood HCO3 5 mmol/L (21-28) Arterial Blood Base Excess -25 mmol/L (-3-3) FiO2 100 Images Images Exam performed: One view chest. Indication: Reason: syncope / Spl. Instructions: / History: Date of Service: 06/12/2020 7:14 PM Comparison: None available. Single AP upright portable view chest findings: Poor inspiratory effort Cardiomediastinal silhouette is within limits of normal for degree of inspiration. Linear left basilar opacity may be related to a combination of infiltrate/atelectasis with small effusion. The right lung is clear. Right hilar prominence noted. The bony structures are normal. Impression: Right hilar prominence perhaps related to rotation, however right hilar mass is not excluded. Comparison with any previous chest x-rays available may be obtained, however if not evaluation with CT chest with contrast may be obtained on a nonemergent basis. Left basilar infiltrate or atelectasis with pleural effusion. Exam: CT of chest, abdomen and pelvis with contrast INDICATION: Back pain, unresponsive TECHNIQUE: Sequential axial images through the chest, abdomen and pelvis obtained following the administration of 75 mL of Isovue-370 IV contrast. Sagittal and coronal reformatted images were reconstructed from the axial data and reviewed. 3-D reformatted images were reconstructed from the axial data and reviewed. Comparisons: None FINDINGS: Visualized portions of the thyroid are unremarkable. No enlarged mediastinal lymph nodes. Heart size is normal. There is a large filling defect occupying the entire right atrium which appears to be extending from the IVC. Pulmonary artery is not enlarged. Thoracic aorta has a normal course and caliber. High density contrast is seen in the left subclavian artery extending to the descending thoracic aorta. Airways are patent. No consolidation or pneumothorax. No suspicious lung nodules. Moderate-sized bilateral pleural effusions. There is a partially calcified multilobulated large mass within the left hepatic lobe measuring approximately 7.7 x 6.8 cm. Diffuse hepatic steatosis. Spleen, pancreas, gallbladder and adrenals are unremarkable. No perinephric inflammation or hydronephrosis. No renal or ureteral calculi. Bladder is decompressed not well evaluated. Uterus is not enlarged. No abnormal adnexal mass. Large and small bowel are unremarkable. Appendix is not identified. No free intra-abdominal air or fluid. No obstruction. Abdominal aorta has a normal course and caliber. No enlarged intra-abdominal lymph nodes. No suspicious osseous lesions or acute fractures. IMPRESSION: 1. Large multiloculated partially calcified mass within the left hepatic lobe measuring approximately 7.8 x 6.8 cm. This is incompletely characterized on this exam. 2. There is either bland thrombus or tumor thrombus extending from the intrahepatic IVC into the right atrium and is filling the majority of the right atrium. 3. Given pattern of contrast evolution in the vasculature on two phase study, there are findings of catheterization of a left upper extremity arterial vessel. Recommend discontinued use of injected line. 4. Diffuse soft tissue anasarca and moderate bilateral pleural effusions. Exam: CT head INDICATION: Altered mental status TECHNIQUE: Sequential axial images through the head were obtained without the administration of IV contrast. Comparisons: None FINDINGS: No focal parenchymal lesion or hemorrhage is identified. There is no midline sh ift or sulcal effacement. Mild patchy hypodensity in the periventricular white matter. No acute vascular territory infarction is identified. Crespo-white distinction is preserved. The ventricular system is within normal limits without compression hydroceph alus. The basal cisterns are well maintained. The visualized portions of the paranasal sinuses and mastoid air cells are well-pneumatized. No acute fractures. IMPRESSION: Mild small vessel schema change, technically age indeterminate without recent prior imaging. VTE Prophylaxis Ordered VTE Prophylaxis Devices: Yes VTE Pharmacological Prophylaxi: No Assessment/Plan Assessment/Plan Septic shock Metastatic melanoma Acute respiratory failure with hypoxia Acute renal failure Acute liver failure Acute heart failure Supratherapeutic INR Thrombocytopenia Hyperkalemia Hypoglycemia Severe malnutrition Plan: After my evaluation of the patient in the ER. CODE AYDIN was called overhead. Patient was coded briefly and ROSC was unable to be obtained. Time of pronounced 0727. Justifications for Admission Other Justification KATHY BONILLA MD Jun 13, 2020 07:47
--- NOTE | 2020-06-13 11:09 | NUR ---
KCTANYA 4,000units infused 06/13/20 @ 0230 Lot: [id number] [facility] Exp: 11/25/2021
--- NOTE | 2020-06-14 07:42 | EKG ---
[facility] [address] [place] [address] Test Date: 2020-06-12 Test Time: 18:46:42 Pat Name: ANDREY BOWLES Department: Room: Gender: F [employer]ic: : 1945 Requested By: WHITNEY SEO Order Number: [id number] Reading MD: Measurements Intervals [place] Rate: 94 P: -40 MO: 158 QRS: 31 QRSD: 64 T: 56 QT: 376 QTc: 476 Interpretive Statements SINUS RHYTHM LOW VOLTAGE PROLONGED QT ABNORMAL ECG RI6.01 No previous ECG available for comparison
[2020-06-14 08:28] LABS: PROTHROMBIN TIME PATIENT > 120.0 SEC (11.7-14.0)
== END 2020-06-13 14:11 ==
LOC: ER 18:21
DX: R41.82 Altered mental status, unspecified (principal); R09.02 Hypoxemia; E16.2 Hypoglycemia, unspecified; I95.9 Hypotension, unspecified
CPT/HCPCS: 31500; 36415; 36430; 36556; 36600; 51702; 70450; 71045; 71275; 74174; 80053; 81001; 82550; 82805; 82962; 83605; 83690; 84145; 84484; 85007; 85025; 85379; 85384; 85610; 85730; 86850; 86900; 86901; 87040; 87804; 93005; 96361; 96365; 96367; 96368; 96375; 96376; 99285; J0171; J0610; J1610; J1940; J2543; J3370; J3490; J7030; J7040; J7060; J7194; P9035; Q9967; 94002; 94003